=== PATIENT | female | born 1965 | race Two or more races ===

== ENCOUNTER 2019-12-12 10:50 | Emergency (ER) | payer MEDICAID ==
[~2019-12-12] VITALS: Ht 152.4 cm; Wt 83.0 kg
[2019-12-12 11:00] VITALS: BP 160/91
== END 2019-12-12 14:41 | disposition home or self-care (01) ==
LOC: ER 10:50
DX: B37.3 Candidiasis of vulva and vagina (principal); E11.9 Type 2 diabetes mellitus without complications; I10 Essential (primary) hypertension
CPT/HCPCS: 81002

== ENCOUNTER 2022-01-17 11:09 | Emergency (ER) | payer MEDICAID ==
[~2022-01-17] VITALS: Ht 152.4 cm; Wt 76.2 kg
[2022-01-17] MEDS ORDERED: TETANUS-DIPTH-ACEL PERTUSSIS 0.5ML SYR Tdap IM ONE (11:45)
[2022-01-17] MEDS ORDERED: SODIUM CHLORIDE 0.9% 1,000 ML IV ONE (11:45)
[2022-01-17] MEDS ORDERED: MORPHINE SULFATE 4 MG/ML SYR/VIAL IV ONE (12:45)
[2022-01-17] MEDS ORDERED: ONDANSETRON HCL 4 MG/2 ML VIAL IV ONE (12:45)
[2022-01-17 13:24] VITALS: BP 167/97
== END 2022-01-17 13:30 | disposition short-term general hospital (02) ==
LOC: ER 11:09
DX: T21.21XA Burn of second degree of chest wall, initial encounter (principal); I10 Essential (primary) hypertension; E11.9 Type 2 diabetes mellitus without complications; X19.XXXA Contact with other heat and hot substances, initial encounter; Y93.89 Activity, other specified; Y92.89 Other specified places as the place of occurrence of the external cause; Y99.8 Other external cause status
CPT/HCPCS: 90471; 90715; 96361; 96374; 96375; 99285; J2270; J2405; J7030

== ENCOUNTER 2024-01-05 16:03 | Emergency (ER) | payer MEDICAID ==
[~2024-01-05] VITALS: Ht 152.4 cm; Wt 75.9 kg
[2024-01-05] MEDS: cloNIDine HCL 0.1 MG TAB PO ONE (16:18)
[2024-01-05 16:48] VITALS: BP 198/106; PULSE 78; RESP 18; O2SAT 100
[2024-01-05 17:00] VITALS: TEMP 97.4
[2024-01-05] MEDS: ACETAMINOPHEN 500 MG TAB PO ONE (17:00)
[2024-01-05] MEDS ORDERED: METH-1182 PO (17:13)
[2024-01-05] MEDS ORDERED: IBUP-1456 PO (17:13)
== END 2024-01-05 17:24 | disposition home or self-care (01) ==
LOC: ER 16:03
DX: S46.911A Strain of unspecified muscle, fascia and tendon at shoulder and upper arm level, right arm, initial encounter (principal); I10 Essential (primary) hypertension; E11.9 Type 2 diabetes mellitus without complications; Z79.1 Long term (current) use of non-steroidal anti-inflammatories (NSAID); Z79.899 Other long term (current) drug therapy; X50.1XXA Overexertion from prolonged static or awkward postures, initial encounter; Y93.89 Activity, other specified; Y92.89 Other specified places as the place of occurrence of the external cause; Y99.8 Other external cause status
CPT/HCPCS: 73060

== ENCOUNTER 2024-10-29 00:24 | Emergency (ER) | payer MEDICAID ==
[~2024-10-29] VITALS: Ht 152.4 cm; Wt 75.8 kg
[~2024-10-29 00:24] MED LIST: IBUP-1456 PO; METH-1182 PO
[2024-10-29] MEDS ORDERED: CIPR1SUS8 OT (01:29)
--- NOTE | 2024-10-29 01:29 | ED.PDOC ---
Eye-HPI HPI Comments 59-year-old female with past medical history pertinent for HTN, DM, presents to ED for left earache x2 days, associated with yellow discharge, dizziness. Patient states that she felt a pop in her ear and then she started feeling discharge then. She denies any trauma or injuries. Patient denies any fever nausea, vomiting, headache, vision changes. Patient also does report left upper arm pain that is rated as 8/10 severity after she twisted her arm. She denies any numbness or tingling. No alleviating or aggravating factors. Chief Complaint: Earache Time Seen by MD: 00:31 Primary Care Provider: ULISSES Reviewed Notes: Nurses Notes, Medications, Allergies Allergies: Coded Allergies: NO KNOWN ALLERGIES (Unverified , 10/09/16) Home Meds Active Scripts Methocarbamol (Methocarbamol) 750 Mg Tab, 750 MG PO BID, #20 TAB Prov:YANA LATHAM 01/05/24 Ibuprofen (Ibuprofen) 800 Mg Tab, 1 TAB PO TID, #30 TAB Prov:YANA LATHAM 01/05/24 Mode of Arrival: Ambulatory Past Medical History PAST MEDICAL HISTORY: DM, HTN Surgical History: Denies all surgeries STRIP FEEDER History: No Pertinent STRIP FEEDER History Family History Family History: Reviewed,noncontributory to illness, No family hx of Cancer, No family hx of DM, No family hx of Heart janie, No family hx of HTN, No family hx ofKidney janie, No family hx of Liver janie, No family hx of Lung janie, No family hx of Stroke Social History Smoker: Non-Smoker Alcohol: Denies ETOH Use Drugs: Denies Drug Use Lives In: Home Constitutional: denies: chills, diaphoresis, fatigue, fever, malaise, sweats, weakness, others EENTM: reports: ear drainage, ear pain; denies: blurred vision, double vision, ear bleeding, ear discharge, ear ringing, eye pain, eye redness, hearing loss, mouth pain, mouth swelling, nasal discharge, nose bleeding, nose congestion, nose pain, photophobia, tearing, throat pain, throat swelling, voice changes, others Respiratory: denies: cough, hemoptysis, orthopnea, SOB at rest, shortness of breath, SOB with excertion, stridor, wheezing, others Cardiovascular: denies: chest pain, dizzy spells, diaphoresis, Dyspnea on exertion, edema, irregular heart beat, left arm pain, lightheadedness, palpitations, PND, syncope, others Gastrointestinal: denies: abdomen distended, abdominal pain, blood streaked bowels, constipated, diarrhea, dysphagia, difficulty swallowing, hematemesis, me luz, nausea, poor appetite, poor fluid intake, rectal bleeding, rectal pain, vomiting, others Genitourinary: denies: abnormal vagina bleeding, burning, dyspareunia, dysuria, flank pain, frequency, hematuria, incontinence, pain, , vagina discharge, urgency, others Neurological: denies: dizziness, fainting, headache, left sided numbness, left sided weakness, numbness, paresthesia, pre-existing deficit, right sided numbness, right sided weakness, seizure, speech problems, tingling, tremors, weakness, others Musculoskeletal: reports: joint pain; denies: back pain, gout, joint swelling, muscle pain, muscle stiffness, neck pain, others Integumetry: denies: bruises, change in color, change in hair/nails, dryness, laceration, lesions, lumps, rash, wounds, others Allergic/Immunocompromised: denies: Difficulty Healing, Frequent Infections, Hives, Itching, others Hematologic/Lymphatic: denies: anemia, blood clots, easy bleeding, easy bruising, swollen glands, others Endocrine: denies: excessive hunger, excessive sweating, excessive thirst, excessive urination, flushing, intolerance to cold, intolerance to heat, unexplained weight gain, unexplained weight loss, others Psychiatric: denies: anxiety, bipolar disorder, depression, hopeless, panic disorder, schizophrenia, sleepless, suicidal, others All Other Systems: Reviewed and Negative Physical Exam General Appearance: No Apparent Distress, Normal HEENT: Normal ENT Inspection, Pharynx Normal, TMs Normal, Other (No erythema or edema noted to bilateral TMs. Left ear canal mildly edematous and there is yellow discharge noted.) Neck: Full Range of Motion, Non-Tender, Normal, Normal Inspection Respiratory: Chest Non-Tender, Lungs Clear, No Accessory Muscle Use, No Respiratory Distress, Normal Breath Sounds Cardiovascular: No Edema, No JVD, No Murmur, No Gallop, Normal Peripheral Pulses, Regular Rate/Rhythm Breast Exam: Deferred Gastrointestinal: No Organomegaly, Non Tender, No Pulsatile Mass, Normal Bowel Sounds, Soft Genitalia: Deferred Pelvic: Deferred Rectal: Deferred Extremities: No calf tenderness, Normal capillary refill, Normal inspection, Normal range of motion, Non-tender, No pedal edema Musculoskeletal : Location: Left Extremity Location: Arm (No tenderness to palpation to the left upper arm. Full range of motion of the left upper arm. No tenderness to palpation to the shoulder. Full range of motion of the elbow.) Apperance: Normal Neurologic: Alert, sales research analyst II-XII nml as Tested, No Motor Deficits, Normal Affect, Normal Mood, No Sensory Deficits Cerebellar Function: Normal Reflexes: Normal Skin: Dry, Normal Color, Warm Lymphatic: No Adenopathy Was a procedure done? Was a procedure done?: No EENT DIFF Eye: N/A Ear: Cerumen Impaction, Foreign Body, Otitis Externa, Otitis Media X-Ray, Labs, Meds, VS Vital Signs Date Time Temp Pulse Resp B/P (MAP) Pulse Ox O2 Delivery O2 Flow Rate FiO2 10/29/24 01:01 98.1 95 18 173/87 (115) 99 X-Ray, Labs, Meds, VS Comment MDM: Patient with history as above presented with earache and left arm pain. History obtained from patient. Patient was nontoxic, stable, afebrile, ambulatory, no acute distress. Exam as above. Reviewed external records. All findings were discussed with the patient. Differential diagnosis considered. Overall presentation is consistent with otitis externa and arm strain. Low suspicion for necrotizing otitis externa, mastoiditis, acute fracture, dislocation. Patient was treated with Tylenol with improvement in symptoms. Patient was reevaluated and vital signs were reviewed. Consideration was given for admission, but the patient was stable for outpatient management. Prescribed antibiotic ear drops for outpatient treatment. Disposition: Discussed the need to follow up diagnostics, including incidental findings. Discharged the patient with instructions to obtain outpatient follow up in 1-2 days of today's symptoms and findings, with strict return precautions if patient develops new or worsening symptoms. This medical document was created using the [employer] system. Although this document has been carefully reviewed, there may still be some phonetic and typographical errors, which are due to imperfections of the software program, and do not reflect any compromise in the patient's medical care. Time of 1ST Reevaluation: 01:27 Reevaluation 1ST: Improved Patient Education/Counseling: Diagnosis, Treatment, Prognosis, Need For Follow Up Family Education/Counseling: No Family Present Departure 1 Departure Time of Disposition: :28 Impression: Primary Impression: Otitis externa Qualified Codes: H60.392 - Other infective otitis externa, left ear Additional Impression: Strain of left upper arm Qualified Codes: S46.912A - Strain of unspecified muscle, fascia and tendon at shoulder and upper arm level, left arm, initial encounter Disposition: HOME / SELF CARE / HOMELESS Condition: Fair e-Prescriptions Ciprofloxacin-Dexamethasone (Ciprofloxacin/Dexamethaso 0.3-0.1 %) 1 Parul Parul 4 DROP OT BID for 7 Days, #7.5 ML Prov: LEATHA GEORGE 10/29/24 Critical Care Note Critical Care Time?: No Stability Stability form required: No Heart Score Heart Score: Heart Score Response (Comments) Value History N/A 0 EKG N/A 0 Age N/A 0 Risk Factors N/A 0 Troponin N/A 0 Total 0 LEATHA GEORGE Oct 29, 2024 01:29
[2024-10-29] MEDS: ACETAMINOPHEN 325 MG TAB PO ONE (01:45)
[2024-10-29 01:47] VITALS: BP 180/90; PULSE 95; RESP 18; TEMP 98.1; O2SAT 99
== END 2024-10-29 01:47 | disposition home or self-care (01) ==
LOC: ER 00:24
DX: H60.392 Other infective otitis externa, left ear (principal); S46.812A Strain of other muscles, fascia and tendons at shoulder and upper arm level, left arm, initial encounter; I10 Essential (primary) hypertension; E11.9 Type 2 diabetes mellitus without complications; Z79.899 Other long term (current) drug therapy; X50.1XXA Overexertion from prolonged static or awkward postures, initial encounter; Y93.89 Activity, other specified; Y92.89 Other specified places as the place of occurrence of the external cause; Y99.8 Other external cause status